=== PATIENT | male | born 1985 | race Caucasian/White ===

== ENCOUNTER 2021-04-25 18:40 | Emergency (ER) | payer SELFPAY ==
[~2021-04-25] VITALS: Ht 165.1 cm; Wt 72.6 kg
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
[2021-04-25] MEDS ORDERED: ONDA4TAB5 PO (19:27)
[2021-04-25] MEDS ORDERED: OXYC-128 PO (19:27)
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
--- NOTE | 2021-04-25 19:50 | NUR ---
Gave pt DC instructions and pt confirmed understanding of aftercare and medication info. Pt denies any pain, sob, n/v, discomfort. VSS, PE wnl. no s/sx of distress noted.
[2021-04-25 21:17] VITALS: BP 125/72
== END 2021-04-25 19:50 | disposition home or self-care (01) ==
LOC: ER 18:40
DX: S86.911A Strain of unspecified muscle(s) and tendon(s) at lower leg level, right leg, initial encounter (principal); S80.02XA Contusion of left knee, initial encounter; S80.01XA Contusion of right knee, initial encounter; V49.50XA Passenger injured in collision with unspecified motor vehicles in traffic accident, initial encounter; Y92.410 Unspecified street and highway as the place of occurrence of the external cause
CPT/HCPCS: A4663